=== PATIENT | female | born 1985 | race African-American/Black ===

== ENCOUNTER 2016-06-18 16:34 | Emergency (ER) | payer BC, OTHER ==
[2016-06-18] MEDS ORDERED: Ibuprofen 200 MG TAB ONE (17:50)
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
== END 2016-06-18 18:17 | disposition home or self-care (01) ==
LOC: BURERS 16:34
DX: S13.4XXA Sprain of ligaments of cervical spine, initial encounter (principal); S09.93XA Unspecified injury of face, initial encounter; Z90.49 Acquired absence of other specified parts of digestive tract; F17.210 Nicotine dependence, cigarettes, uncomplicated
CPT/HCPCS: 70486; 72125

== ENCOUNTER 2016-08-18 11:39 | Outpatient (CLI) | payer BC ==
[2016-08-18 12:24] LABS: #Basophils 0.1 thou/uL (0.0-0.2); #Eosinphils 0.1 thou/uL (0.0-0.7); #Lymphocytes 2.6 thou/uL (1.20-3.40); #Monocytes 0.6 thou/uL (0.11-0.59); %Basophils 0.9 % (0.0-1.0); %Monocytes 6.9 % (0.0-10.0); Hematocrit 41.4 % (36.0-47.0); Red Blood Cell (RBC) Count 5.13 mill/uL (4.20-5.40); White Blood Cell (WBC) Count 8.3 thou/uL (4.8-10.8)
[2016-08-18 12:51] LABS: ALT (SGPT) 14 U/L (0-55); AST (SGOT) 12 U/L (5-34); Alkaline Phosphatase 61 U/L (40-150); Anion Gap 13 mmol/L (10-20); BUN (Urea Nitrogen) 9 mg/dL (7.0-18.7); Bilirubin, Total 0.6 mg/dL (0.2-1.2); Calc. Creatinine Clearance 0 mL/min (70-130); Calcium 9.5 mg/dL (7.8-10.44); Carbon Dioxide 23 mmol/L (22-29); Chloride 107 mmol/L (98-107); Estimated GFR-MDRD Greater than 90; Globulin 2.9 g/dL (2.4-3.5); Protein, Total 7.3 g/dL (6.0-8.3)
== END 2016-08-18 11:40 ==
LOC: HPCALD 11:39
PROVIDERS: ATTEND Physician Assistant
DX: E66.09 Other obesity due to excess calories (principal)
CPT/HCPCS: 36415; 80053; 84443; 85025